=== PATIENT | male | born 1960 | race African-American/Black ===

== ENCOUNTER 2019-04-18 03:35 | Emergency (ER) | payer MEDICAID ==
[~2019-04-18] VITALS: Ht 165.1 cm; Wt 64.0 kg
[2019-04-18] MEDS ORDERED: ONDANSETRON 4MG ODT PO ONE (08:15)
[2019-04-18] MEDS ORDERED: MORPHINE SULFATE 10 MG/ML CPJ IM ONE (08:15)
[2019-04-18 09:25] VITALS: BP 128/83
== END 2019-04-18 10:29 | disposition home or self-care (01) ==
LOC: ER 03:35
DX: S39.012A Strain of muscle, fascia and tendon of lower back, initial encounter (principal); F17.200 Nicotine dependence, unspecified, uncomplicated; Z86.59 Personal history of other mental and behavioral disorders; W17.89XA Other fall from one level to another, initial encounter; Y93.89 Activity, other specified; Y92.89 Other specified places as the place of occurrence of the external cause; Y99.8 Other external cause status
CPT/HCPCS: 72100; 96372; 99283; J2270; Q0162